=== PATIENT | female | born 1980 | race Caucasian/White ===

== ENCOUNTER 2018-07-24 20:02 | Emergency (ER) | payer SELFPAY ==
[2018-07-24 20:20] VITALS: RESP 16
[2018-07-24] MEDS ORDERED: Naproxen 500 MG TAB PO ONE ×2 (20:48→21:44)
[2018-07-24] MEDS ORDERED: Albuterol-Ipratrop 3 mg / 0.5 (3 ml) UD IH STA (20:48)
--- NOTE | 2018-07-24 20:51 | ED PDOC ---
HPI: CCC, URI, Sore Throat Time Seen by Provider: 07/24/18 20:39 Chief Complaint (Nursing): Cough, Cold, Congestion Chief Complaint (Provider): cough History Per: Patient History/Exam Limitations: no limitations Onset/Duration Of Symptoms: Days (3) Current Symptoms Are (Timing): Still Present Additional Complaint(s): 38 y/o female presents for evaluation of persistent cough x 3 days. Associated subjective fevers, nasal congestion, sneezing, and pain in chest with coughing. Has been taking Nyquil and Sudafed with little relief. Denies ear pain, throat pain, nausea/vomiting, shortness of breath, abdominal pain, changes in bowel movements, recent travel, sick contacts. Past Medical History Reviewed: Historical Data, Nursing Documentation, Vital Signs Vital Signs: Last Vital Signs Temp 99.6 F 07/24/18 20:20 Pulse 93 H 07/24/18 20:20 Resp 16 07/24/18 20:20 BP 150/87 07/24/18 20:20 Pulse Ox 100 07/24/18 20:20 - Medical History PMH: No Chronic Diseases - Family History Family History: States: Unknown Family Hx - Living Arrangements Living Arrangements: With Family - Immunization History Hx Tetanus Toxoid Vaccination: No Hx Influenza Vaccination: No Hx Pneumococcal Vaccination: No - Home Medications Home Medications: Ambulatory Orders Medication Instructions Recorded Hydrocodone/Acetaminophen [[place] 1 tab PO QID #12 tab 11/20/14 325 mg-5 mg] Albuterol HFA [Ventolin HFA 90 1 puff IH Q4 PRN #1 inh 07/24/18 mcg/actuation (8 g)] Fluticasone Nasal [Flonase] 1 actuation NS BID #1 bottle 07/24/18 Naproxen [Naprosyn] 500 mg PO Q12 PRN #20 tablet 07/24/18 guaiFENesin/Dextromethorphan 1 - 2 tab PO Q12 PRN #20 tab 07/24/18 [guaiFENesin/DM 600-30 mg] - Allergies Allergies/Adverse Reactions: Allergies Allergy/AdvReac Type Severity Reaction Status Date / Time EGG Allergy RASH Verified 07/24/18 20:19 tomato Allergy RASH Verified 07/24/18 20:19 rubio Allergy RASH Uncoded 07/24/18 20:19 Review of Systems ROS Statement: Except As Marked, All Systems Reviewed And Found Negative Constitutional: Positive for: Fever, Chills ENT: Positive for: Nose Congestion Respiratory: Positive for: Cough Physical Exam - Reviewed Nursing Documentation Reviewed: Yes Vital Signs Reviewed: Yes - Physical Exam Appears: Positive for: Well, Non-toxic, Uncomfortable (coughing) Head Exam: Positive for: ATRAUMATIC, NORMAL INSPECTION, NORMOCEPHALIC Skin: Positive for: Normal Color Eye Exam: Positive for: Normal appearance ENT: Positive for: Nasal Congestion Neck: Positive for: Normal Cardiovascular/Chest: Positive for: Regular Rate, Rhythm Respiratory: Positive for: Normal Breath Sounds Gastrointestinal/Abdominal: Positive for: Normal Exam Back: Positive for: Normal Inspection Extremity: Positive for: Normal ROM Neurologic/Psych: Positive for: Alert, Oriented (x3) - ECG O2 Sat by Pulse Oximetry: 100 - Radiology X-Ray: Viewed By Ga X-Ray Interpretation: No Acute Disease - Progress ED Course And Treament: -influenza -cxr -duoneb -naproxen PO Patient educated on findings, discharged with rx Naproxen, Mucinex-DM, Flonase, Albuterol HFA Advised fluids, rest Follow up PMD within 2-3 days Return precautions given Disposition - Clinical Impression Clinical Impression: URI (upper respiratory infection) - Patient ED Disposition Is Patient to be Admitted: No Counseled Patient/Family Regarding: Studies Performed, Diagnosis, Need For Followup, Rx Given - Disposition Disposition: Routine/Home Disposition Time: 23:16 Condition: IMPROVED Prescriptions: Albuterol HFA [Ventolin HFA 90 mcg/actuation (8 g)] 1 puff IH Q4 PRN #1 inh PRN Reason: Wheezing Fluticasone Nasal [Flonase] 1 actuation NS BID #1 bottle guaiFENesin/Dextromethorphan [guaiFENesin/DM 600-30 mg] 1 - 2 tab PO Q12 PRN #20 tab PRN Reason: cough and congestion Naproxen [Naprosyn] 500 mg PO Q12 PRN #20 tablet PRN Reason: Pain, Moderate (4-7) Instructions: Viral Upper Respiratory Infection, Adult (DC) Forms: [facility] (Estonian) Print Language: AMHARIC
[2018-07-24] MEDS ORDERED: Albuterol-Ipratrop 3 mg / 0.5 (3 ml) UD ONE (21:45)
[2018-07-24 23:36] VITALS: BP 114/77; PULSE 100; TEMP 98.8; O2SAT 97
--- NOTE | 2018-07-25 10:17 | RAD ---
Date of service: 07/24/2018 HISTORY: Cough COMPARISON: No prior. TECHNIQUE: Chest PA and lateral FINDINGS: LINES AND TUBES: None. LUNG AND PLEURA: The lungs are well inflated and clear. No pleural effusion or pneumothorax. HEART AND MEDIASTINUM: The heart is not enlarged. No aortic atherosclerotic calcification present. The hilar and mediastinal contours are within normal limits. SKELETAL STRUCTURES: The bony structures are within normal limits for the patient's age. VISUALIZED UPPER ABDOMEN: Normal. OTHER FINDINGS: None. IMPRESSION: No active pulmonary disease.
--- NOTE | 2018-07-26 13:49 | CARD ---
APPROVED REPORT Date of service: 07/24/2018 EKG Measurement Heart [id number] <Conclusion> Normal sinus rhythm Normal ECG
== END 2018-07-24 23:36 | disposition home or self-care (01) ==
LOC: H.ER 20:02
DX: J06.9 Acute upper respiratory infection, unspecified (principal)

== ENCOUNTER 2018-12-26 23:43 | Emergency (ER) | payer SELFPAY ==
[2018-12-27 00:03] VITALS: BP 124/74; PULSE 76; RESP 18; TEMP 98.6; O2SAT 99
--- NOTE | 2018-12-27 01:24 | ED PDOC ---
HPI: Female Pain Time Seen by Provider: 12/27/18 00:21 Chief Complaint (Nursing): Female Genitourinary Chief Complaint (Provider): Female Genitourinary History Per: Patient History/Exam Limitations: no limitations Onset/Duration Of Symptoms: Other (x2 weeks) Current Symptoms Are (Timing): Still Present Additional Complaint(s): Patient is a 38 y/o female with a PMHx of ovarian cysts who presents to the ED for evaluation of vaginal bleeding for the past two weeks. Patient reports the bleeding is associated with "cramping" abdominal pain. Patient states the bleeding has been continuous since her last menstrual period and was heavy yesterday, thus, prompting an ED visit. Patient denies dysuria, vomiting, and diarrhea. Of note, patient states she is not . PCP: Dr. Katerina Almazan Past Medical History Reviewed: Historical Data, Nursing Documentation, Vital Signs Vital Signs: Last Vital Signs Temp 98.6 F 12/26/18 23:58 Pulse 76 12/26/18 23:58 Resp 18 12/26/18 23:58 BP 124/74 12/26/18 23:58 Pulse Ox 99 12/26/18 23:58 Primary Care Provider: Katerina Almazan - Medical History Other PMH: ovarian cysts - Surgical History Surgical History: No Surg Hx - Family History Family History: States: Unknown Family Hx - Immunization History Hx Tetanus Toxoid Vaccination: No Hx Influenza Vaccination: No Hx Pneumococcal Vaccination: No - Home Medications Home Medications: Ambulatory Orders Medication Instructions Recorded No Known Home Med 07/29/18 - Allergies Allergies/Adverse Reactions: Allergies Allergy/AdvReac Type Severity Reaction Status Date / Time EGG Allergy RASH Verified 07/29/18 00:57 tomato Allergy RASH Verified 07/29/18 00:57 rubio Allergy RASH Uncoded 07/29/18 00:57 Review of Systems ROS Statement: Except As Marked, All Systems Reviewed And Found Negative Gastrointestinal: Positive for: Abdominal Pain (cramping). Negative for: Vomiting, Diarrhea Genitourinary Female: Positive for: Vaginal Bleeding. Negative for: Dysuria Physical Exam - Reviewed Nursing Documentation Reviewed: Yes Vital Signs Reviewed: Yes - Physical Exam Appears: Positive for: No Acute Distress Head Exam: Positive for: ATRAUMATIC, NORMAL INSPECTION, NORMOCEPHALIC Skin: Positive for: Normal Color, Warm, DRY Eye Exam: Positive for: EOMI, Normal appearance, PERRL Neck: Positive for: Normal, Painless ROM, Supple Cardiovascular/Chest: Positive for: Regular Rate, Rhythm. Negative for: Murmur Respiratory: Positive for: Normal Breath Sounds. Negative for: Respiratory Distress Gastrointestinal/Abdominal: Positive for: Tenderness (mild suprapubic) Back: Positive for: Normal Inspection. Negative for: L CVA Tenderness, R CVA Tenderness Extremity: Positive for: Normal ROM. Negative for: Pedal Edema, Deformity Neurological/Psych: Positive for: Alert, Oriented (x3) - Laboratory Results Result Diagrams: 12/27/18 01:25 12/27/18 01:25 - ECG O2 Sat by Pulse Oximetry: 99 (RA) Pulse Ox Interpretation: Normal Medical Decision Making Medical Decision Making: Time: 51 Impression: Vaginal Bleeding and Suprapubic Pain DDx includes but not limited to ovarian cysts, uterine fibroids, and dysfunction uterine bleeding. Plan: BMP Urine Urine Dipstick CBC PTT Prothrombin Time Urine Culture UA Pelvis/Transvag US Time: 226 FINDINGS: UTERUS: Measures 9.6 x 5.4 x 7.6 cm. Normal in size and appearance. No fibroid or other mass lesion seen. ENDOMETRIUM: Measures 23 mm in diameter. Heterogeneous and hypervascular. Concerning for endometrial neoplasm. CERVIX: No cervical abnormality identified. RIGHT OVARY: Measures 3.9 x 2.5 x 2.2 cm. No solid mass. Normal flow. LEFT OVARY: Measures 2.6 x 1.7 x 1.8 cm. No solid mass. Normal flow. FREE FLUID: No significant free fluid noted. OTHER FINDINGS: None. IMPRESSION: Thickened heterogeneous hypervascular endometrium. Concerning for endometrial neoplasm. Further evaluation is advised. The preliminary findings for this examination were reported by [facility] at 3:39 a.m. on 12/27/2018. There is concurrence of this report with the preliminary findings. Time: 340 Clinical impression is DUB (dysfunctional uterine bleeding) and Complex endometrial hyperplasia. Patient advised to followup with primary. Return parameters discussed. Scribe Attestation: Documented by Immanuel Oconnell, acting as a scribe Vani Ramos MD. Provider Scribe Attestation: All medical record entries made by the Scribe were at my direction and personally dictated by me. I have reviewed the chart and agree that the record accurately reflects my personal performance of the history, physical exam, medical decision making, and the department course for this patient. I have also personally directed, reviewed, and agree with the discharge instructions and disposition. Disposition - Clinical Impression Clinical Impression: DUB (dysfunctional uterine bleeding), Complex endometrial hyperplasia - Patient ED Disposition Is Patient to be Admitted: No Doctor Will See Patient In The: Office Counseled Patient/Family Regarding: Studies Performed, Diagnosis, Need For Followup - Disposition Referrals: Katerina Almazan [Primary Care Provider] - Disposition: Routine/Home Disposition Time: 03:41 Condition: GOOD Additional Instructions: MARTITA GRIJALVA, thank you for letting us take care of you today. Your provider was Howard Ramos MD and you were treated for ABD PAIN. The emergency medical care you received today was directed at your acute symptoms. If you were prescribed any medication, please fill it and take as directed. It may take several days for your symptoms to resolve. Return to the Emergency Department if your symptoms worsen, do not improve, or if you have any other p roblems. Please contact your doctor or call one of the physicians/clinics you have been referred to that are listed on the Patient Visit Information form that is included in your discharge packet. Bring any paperwork you were given at discharge with you along with any medications you are taking to your follow up visit. Our treatment cannot replace ongoing medical care by a primary care provider outside of the emergency department. Thank you for allowing the [facility] team to be part of your care today. If you had an X-Ray or CT scan: A Radiologist will review the ED reading if any change in treatment is needed we will contact you. If you had a blood, urine, or wound culture: It will take several days for the results, if any change in treatment is needed we will contact you. Instructions: Heavy Periods Print Language: GUAMANIAN
[2018-12-27 01:32] LABS: BASO # 0.1 K/uL (0.0-0.2); BASO % 1.2 % (0.0-2.0); EOS # 0.3 K/uL (0.0-0.7); HEMOGLOBIN 10.4 g/dL (12.0-16.0); LYMPH # 2.5 K/uL (1.0-4.3); LYMPH % 41.9 % (20.0-40.0); MEAN CORPUSCULAR HEMOGLOBIN 26.9 pg (27.0-31.0); MEAN CORPUSCULAR HGB CONC 32.9 g/dL (33.0-37.0); MONO # 0.7 K/uL (0.0-0.8); MONO % 11.8 % (0.0-10.0); NEUT # 2.4 K/uL (1.8-7.0); NEUT % 40.1 % (50.0-75.0); RBC 3.84 Mil/uL (3.80-5.20); WHITE BLOOD COUNT 5.9 K/uL (4.8-10.8)
[2018-12-27 01:36] LABS: PROTHROMBIN TIME 11.6 Seconds (9.8-13.1)
[2018-12-27 01:38] LABS: PARTIAL THROMBOPLASTIN TIME 27.8 Seconds (25.6-37.1)
[2018-12-27 01:40] LABS: BLOOD UREA NITROGEN 10 mg/dl (7-17); CALCIUM 8.3 mg/dL (8.4-10.2); GFR NON-AFRICAN AMERICAN > 60
[2018-12-27 02:13] LABS: SQUAMOUS EPITHIAL 1 /hpf (0-5); URINE BILIRUBIN NEGATIVE (NEGATIVE); URINE BLOOD LARGE (NEGATIVE); URINE CLARITY CLOUDY (Clear); URINE COLOR RED (YELLOW); URINE GLUCOSE (UA) NEG (NEGATIVE); URINE LEUKOCYTE ESTERASE NEG Leu/uL (Negative); URINE PROTEIN 100 mg/dL (NEGATIVE); URINE UROBILINOGEN 0.2-1.0 mg/dL (0.2-1.0)
--- NOTE | 2018-12-27 14:33 | US ---
Date of service: 12/27/2018 HISTORY: lower abd pain vag bleeding COMPARISON: None available. TECHNIQUE: Transvaginal and transabdominal FINDINGS: UTERUS: Measures 9.6 x 5.4 x 7.6 cm. Normal in size and appearance. No fibroid or other mass lesion seen. ENDOMETRIUM: Measures 23 mm in diameter. Heterogeneous and hypervascular. Concerning for endometrial neoplasm. CERVIX: No cervical abnormality identified. RIGHT OVARY: Measures 3.9 x 2.5 x 2.2 cm. No solid mass. Normal flow. LEFT OVARY: Measures 2.6 x 1.7 x 1.8 cm. No solid mass. Normal flow. FREE FLUID: No significant free fluid noted. OTHER FINDINGS: None. IMPRESSION: Thickened heterogeneous hypervascular endometrium. Concerning for endometrial neoplasm. Further evaluation is advised. The preliminary findings for this examination were reported by [facility] at 3:39 a.m. on 12/27/2018. There is concurrence of this report with the preliminary findings.
== END 2018-12-27 04:04 | disposition home or self-care (01) ==
LOC: H.ER 23:43
DX: N93.8 Other specified abnormal uterine and vaginal bleeding (principal); N85.01 Benign endometrial hyperplasia; N83.209 Unspecified ovarian cyst, unspecified side